=== PATIENT | female | born 1945 | race Caucasian/White ===

== ENCOUNTER → 2020-01-18 | Outpatient (CLI) | payer OTHER ==
[~2020-01-18] MED LIST: BIOTIN PO; CLOPIDOGREL75 MG PO; FLONASE 0.05%50 MCG NARES; GEMFIBROZIL 60600 M1 PO; IRBESARTAN300 MG PO; METOPROLOL SUCC25 M1 PO; MULTI VITAMIN1 EACH PO; NORCO 10-325 T1 EACH PO; ONDANSETRON HCL4 M3 PO; PANTOPRAZOLE SO40 M1 PO; ROSUVASTATIN CA20 MG PO
== END ==
LOC: LAB 14:01
PROVIDERS: ATTEND Student in an Organized Health Care Education/Training Program
DX: Z01.818 Encounter for other preprocedural examination (principal); Z11.59 Encounter for screening for other viral diseases

== ENCOUNTER 2020-01-21 09:44 | Day surgery (SDC) | payer OTHER ==
[~2020-01-21] VITALS: Ht 167.6 cm; Wt 99.8 kg
[2020-01-21 10:48] VITALS: BP 140/68
--- NOTE | 2020-01-21 13:11 | O ---
[facility] [place] [address] OPERATIVE REPORT Name: FRANCOISE DACOSTA Room #: 150-6 [facility] M.R.#: [id number] Admission: 01/21/20 Attend Phys: Denton Nunez MD Discharge: Date of : 47 Report #: [id number] THIS REPORT FOR: cc: Gaurav Kincaid,Gaurav Angulo,Denton Winchester MD ~ CC: Denton Kincaid DATE OF SERVICE: 01/21/2020 PREOPERATIVE DIAGNOSIS: Comminuted complex displaced left elbow radial head fracture. POSTOPERATIVE DIAGNOSIS: Comminuted complex displaced left elbow radial head fracture. PROCEDURE: Excision of complex comminuted radial head fracture and replacement with a radial head implant. SURGEON: Denton Nunez MD INDICATIONS: This still active, independent 75-year-old female fell injuring the left elbow. X-rays confirm a badly comminuted fracture of the radial head with multiple fracture fragments and significant displacement. Given these findings, we have elected to go ahead with surgical exploration anticipating excision of the head with replacement or possible ORIF. The patient and her understand well and wish to proceed. DESCRIPTION OF PROCEDURE: The patient was taken to the operating room where she was placed under general anesthesia. Prophylactic intravenous antibiotics were administered. The left arm and hand were meticulously prepped and draped and an upper arm tourniquet applied and inflated to 250 mmHg. A lateral slightly oblique skin incision was made beginning at the lateral humeral epicondyle and extending distally and dorsally to expose the radial head. The incision was carefully extended through fascia and muscles were spread gently. The head was found to be fractured in multiple pieces with displacement and marked instability. The fracture fragments were carefully removed and reassembled on the back table to assure that all the fragments had been removed. The articular surface of the capitellum appeared to be in good shape with only minor fissuring and grooving. No other significant abnormalities were identified. The [employer] radial head implant system was utilized. A trial broach and trial implant was performed and it appears that a 22 mm diameter radial head using a 6.5 mm stem and a +2 stem neck addition fit nicely. This resulted in good range of motion, alignment and stability. The trial component was removed. The permanent [employer] EVOLVE Proline radial head implant system was brought [address] [address] OPERATIVE REPORT Name: OLESYAFRANCOISE Room #: 150-6 [facility] M..#: [id number] Admission: 01/21/20 Attend Phys: Denton Nunez MD Discharge: Date of : 47 Report #: [id number] on to the field. The permanent components using the 22 mm radial head diameter and the 6.5 mm stem with a +2 neck length were selected. The components were assembled on the back table and seated it together nicely. The completed prosthetic unit was then gently impacted into the canal of the radial neck and it seated well. The joint was reduced and once again alignment, range of motion and stability were assessed and felt to be satisfactory. The tourniquet was then deflated. Good hemostasis was confirmed. C-arm was used to visualize the components and demonstrated good position of the radial head implant. The muscle fascia was then closed with multiple 2-0 Monocryl sutures. The subcutaneous tissues were also closed with 2-0 Monocryl. The skin was closed with 3-0 Prolene and supplemented with Steri-Strips. The subcutaneous tissues and muscle were then injected with about 8 mL of 0.5% Marcaine with epinephrine. A sterile dressing was applied. The patient was awakened and returned to recovery room in good condition. <ELECTRONICALLY SIGNED> By: Denton Nunez MD 01/21/20 1311 1259 [id number] Denton Nunez MD /nt
[2020-01-21 13:56] VITALS: BP 140/68
--- NOTE | 2020-01-24 07:52 | EKG ---
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
== END 2020-01-21 14:30 | disposition home or self-care (01) ==
LOC: OR 09:44 → TBA 09:50 → OR 10:35
PROVIDERS: ATTEND Orthopaedic Surgery
DX: S52.122A Displaced fracture of head of left radius, initial encounter for closed fracture (principal); I10 Essential (primary) hypertension; E78.5 Hyperlipidemia, unspecified; G47.30 Sleep apnea, unspecified; K21.9 Gastro-esophageal reflux disease without esophagitis; Z90.710 Acquired absence of both cervix and uterus; Z98.890 Other specified postprocedural states; Z79.899 Other long term (current) drug therapy; Z91.040 Latex allergy status; Z88.8 Allergy status to other drugs, medicaments and biological substances; Z88.0 Allergy status to penicillin; X58.XXXA Exposure to other specified factors, initial encounter; Y93.89 Activity, other specified; Y92.89 Other specified places as the place of occurrence of the external cause; Y99.8 Other external cause status
CPT/HCPCS: 50010; 50101; 50386; 50951; 56525; 56528; 57091; 57178; 58240; 58241; 62110; 62900; 64043; 65060; 70005